=== PATIENT | female | born 1975 | race Two or more races ===

== ENCOUNTER 2017-11-10 20:31 | Emergency (ER) | payer MEDICARE, MEDICAID ==
[~2017-11-10] VITALS: Ht 153 cm; Wt 59.0 kg
[~2017-11-10 20:31] MED LIST: IBUPROFEN400 MG ORAL; IBUPROFEN600 MG ORAL; KEFLEX500 MG ORAL; NORCO 7.5-3251 EACH ORAL; PREDNISOLONE ACE5 ML OP; RESTASIS1 EACH RIGHT EYE; SAPHRIS5 MG SL; XANAX2 MG ORAL
[2017-11-10] MEDS ORDERED: Acetaminophen 500mg (ES) tab ORAL ONE (20:45)
[2017-11-10 20:54] VITALS: BP 123/73
[2017-11-10] MEDS ORDERED: TYLENOL EXTRA500 MG ORAL (21:46)
[2017-11-10] MEDS ORDERED: LIDOCAINE700 M1 TP (21:46)
[2017-11-10 21:50] VITALS: BP 125/73
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
--- NOTE | 2017-11-11 09:50 | Diagnostic Imaging Report ---
Indication: Right shoulder pain Technique: 3 views of the left shoulder Comparison: None Findings: No acute fractures or dislocations. Joint spaces are preserved. Impression: Negative
== END 2017-11-10 21:50 | disposition home or self-care (01) ==
LOC: EMR 21:28
DX: S46.911A Strain of unspecified muscle, fascia and tendon at shoulder and upper arm level, right arm, initial encounter (principal); W51.XXXA Accidental striking against or bumped into by another person, initial encounter; Y92.254 Theater (live) as the place of occurrence of the external cause; Z88.5 Allergy status to narcotic agent; Z86.69 Personal history of other diseases of the nervous system and sense organs
CPT/HCPCS: 99284

== ENCOUNTER 2017-12-01 00:11 | Emergency (ER) | payer MEDICARE, MEDICAID ==
[~2017-12-01] VITALS: Ht 152.4 cm; Wt 61.2 kg
[~2017-12-01 00:11] MED LIST changes: +LIDOCAINE700 M1 TP; +TYLENOL EXTRA500 MG ORAL
[2017-12-01 01:00] VITALS: BP 144/83
[2017-12-01] MEDS ORDERED: Acetaminophen 500mg (ES) tab ORAL ONE (01:15)
--- NOTE | 2017-12-01 03:13 | Emergency Room Report ---
History of Present Illness General Chief Complaint: Eye Problems Source: Patient Present Illness HPI 42-year-old female with a history of glaucoma, multiple surgeries, presents with concern for left eye pain She reports no change in vision She was seen by her doctor Servando Ludwig from ophthalmology Chest this morning, and reports she has another visit scheduled for tomorrow Apparently the pressure in the left eye was greater than usual She comes here only requesting a pressure check, as she'll he has medications prescribed by her doctor yesterday and has a follow-up later this morning with this meteorologist liaison She is currently taking difluprednate 0.05% and cyclosporine 0.05% drops. She reports these the drops that she was told to take just today. Allergies: Coded Allergies: HALOPERIDOL (Verified Allergy, Severe, 06/13/15) MORPHINE (Verified Allergy, Severe, 05/17/16) morphine mixed with xanax makes me delusional and black out. Patient History Past Medical History: see triage record Last Menstrual Period: 2 weeks ago Now: No Reviewed Nursing Documentation: PMH: Agreed; PSxH: Agreed Nursing Documentation-PMH Hx Cancer: No Hx Gastrointestinal Problems: Yes - cholesystectomy 05/2016 Hx Neurological Problems: Yes - HX MIGRAINES-LAST EPISODE 02/2015 Hx Seizures: Yes Review of Systems All Other Systems: negative except mentioned in HPI Physical Exam Vital Signs Date Time Temp Pulse Resp B/P (MAP) Pulse Ox O2 Delivery O2 Flow Rate FiO2 12/01/17 00:16 97.6 100 18 144/83 98 Room Air 97.5 Sp02 EP Interpretation: reviewed, normal General Appearance: no apparent distress, alert, non-toxic Head: normocephalic Eyes: left eye visual acuity - 20/100; bilateral eye normal inspection, bilateral eye PERRL, bilateral eye EOMI ENT: normal ENT inspection, hearing grossly normal, normal pharynx, no angioedema, normal voice, moist mucus membranes Neck: normal inspection, full range of motion, supple, supple/symm/no masses Respiratory: chest non-tender, lungs clear, normal breath sounds, chest symmetrical, palpation of chest normal Cardiovascular #1: normal peripheral pulses, regular rate, rhythm Cardiovascular #2: 2+ radial (R), 2+ radial (L) Gastrointestinal: normal inspection, non tender, soft, no mass, no guarding, no rebound Rectal: deferred Genitourinary: normal inspection, no CVA tenderness Musculoskeletal: back normal, gait/station normal, normal range of motion Neurologic: alert, responsive, cosmetics counter manager III-XII nml as tested, motor strength/tone normal, sensory intact, speech normal Psychiatric: judgement/insight normal, memory normal, mood/affect normal, no suicidal/homicidal ideation Skin: normal color, no rash, warm/dry, normal turgor Lymphatic: no adenopathy Medical Decision Making Diagnostic Impression: Primary Impression: Eye problem ER Course Patient with a good relationship with her meteorologist liaison, reports she just saw him, and he is aware, and also has follow-up tomorrow with her meteorologist liaison, I did call Dr. Servando Ludwig, on his cell phone number that the patient provided me [phone], he did not return the call. I asked patient to await for the call but she had a desire to go home, because she only came to get the pressure measure. But requested she follow up with her doctor tomorrow morning as she told me she had already had arranged, and that if she goes home and is unable to see him tomorrow morning at she should, to our ER again by noon. She seemed very reliable to do this, and said she just wanted to get her pressure checked, today the intraocular pressure measurement using our Kj-Pen was 33 in the left eye and 17 in the right eye. Although these values are elevated, the examination was not done optimally, as patient was moving her eyes a lot. Also patient does not have a steamy mid dilated pupil, no conjunctival injection, and is not having change in her baseline of her vision in her left eye which is the one she came out of concern for. Her medications do not seem accurate for those that would treat glaucoma, but again patient reports she has a follow-up with meteorologist liaison tomorrow morning does not wish to stay here awaiting ophthalmology consultation. She however, did agree to come back if she was unable see her meteorologist liaison tomorrow morning, so I did discharge her with this follow-up plan. Last Vital Signs Date Time Temp Pulse Resp B/P (MAP) Pulse Ox O2 Delivery O2 Flow Rate FiO2 12/01/17 01:14 97.6 12/01/17 01:00 100 18 144/83 98 Room Air Disposition: HOME, SELF-CARE Condition: Stable Referrals: NON PHYSICIAN (PCP) GIOVANNI HERNANDEZ M.D December 01, 2017 03:13
[2017-12-01 03:22] VITALS: BP 126/87
[2017-12-01 03:23] VITALS: BP 144/83
== END 2017-12-01 03:24 | disposition home or self-care (01) ==
LOC: EMR 01:05
DX: H57.12 Ocular pain, left eye (principal); H40.9 Unspecified glaucoma; Z98.890 Other specified postprocedural states; Z86.69 Personal history of other diseases of the nervous system and sense organs; Z90.49 Acquired absence of other specified parts of digestive tract; Z88.5 Allergy status to narcotic agent
CPT/HCPCS: 99283

== ENCOUNTER 2018-05-28 20:51 | Emergency (ER) | payer MEDICARE, MEDICAID ==
[~2018-05-28] VITALS: Ht 152.4 cm; Wt 61.2 kg
[2018-05-28 21:10] VITALS: BP 102/68
[2018-05-28] MEDS ORDERED: CEPHALEXIN500 MG ORAL (21:18)
[2018-05-28 21:27] VITALS: BP 102/68
--- NOTE | 2018-05-28 21:45 | Emergency Room Report ---
History of Present Illness General Chief Complaint: Upper Extremity Injury Source: Patient Present Illness HPI Patient 42-year-old female who presented after increased pain to her left index finger. The patient was having injured her finger 2 days ago. She reports having some foul-smelling drainage.She reported have some initial bleeding. She denies any fever. Allergies: Coded Allergies: HALOPERIDOL (Verified Allergy, Severe, 06/13/15) MORPHINE (Verified Allergy, Severe, 05/17/16) morphine mixed with xanax makes me delusional and black out. Patient History Past Medical History: see triage record Last Menstrual Period: 3 weeks ago Now: No Reviewed Nursing Documentation: PMH: Agreed; PSxH: Agreed Nursing Documentation-PMH Hx Cancer: No Hx Gastrointestinal Problems: Yes - cholesystectomy 05/2016 Hx Neurological Problems: Yes - HX MIGRAINES-LAST EPISODE 02/2015 Hx Seizures: Yes Review of Systems All Other Systems: negative except mentioned in HPI Physical Exam Vital Signs Date Time Temp Pulse Resp B/P (MAP) Pulse Ox O2 Delivery O2 Flow Rate FiO2 05/28/18 20:57 99.0 83 16 102/68 97 Room Air General Appearance: well appearing, no apparent distress, alert, GCS 15 Head: normocephalic, atraumatic ENT: hearing grossly normal, normal voice Neck: full range of motion, supple Respiratory: no respiratory distress, speaking full sentences Musculoskeletal: other - left index finger, slight paronychial redness, no abscess Neurologic: normal inspection, alert, oriented x3, responsive, normal gait Psychiatric: mood/affect normal Skin: no rash Medical Decision Making Diagnostic Impression: Primary Impression: Paronychia Additional Impression: Nail avulsion ER Course The patient presented for finger pain. The differential diagnosis included was not limited to fracture, paronychial, nail avulsion among others. Patient has a benign exam and does not appear to require any further imaging or laboratory testing at this time. The patient given prescription for Keflex for what appears to be a minimally infected paronychia. Patient was given prescription for Keflex. Patient is to follow up with primary care physician and to return if worse. Last Vital Signs Date Time Temp Pulse Resp B/P (MAP) Pulse Ox O2 Delivery O2 Flow Rate FiO2 05/28/18 20:57 99.0 83 16 102/68 97 Room Air Status: improved Disposition: HOME, SELF-CARE Condition: Stable Scripts Cephalexin* (KEFLEX*) 500 Mg Capsule 500 MG ORAL EVERY 6 HOURS, #28 CAP Prov: Alok Boudreaux MD 05/28/18 Patient Instructions: Alok Garzon MD May 28, 2018 21:45
== END 2018-05-28 21:35 | disposition home or self-care (01) ==
LOC: EMR 21:30
DX: L03.012 Cellulitis of left finger (principal); S61.301A Unspecified open wound of left index finger with damage to nail, initial encounter; X58.XXXA Exposure to other specified factors, initial encounter; Y92.9 Unspecified place or not applicable; Z90.49 Acquired absence of other specified parts of digestive tract; Z88.5 Allergy status to narcotic agent
CPT/HCPCS: 99282

== ENCOUNTER 2019-03-10 02:44 | Emergency (ER) | payer MEDICARE, MEDICAID ==
[~2019-03-10] VITALS: Ht 152.4 cm; Wt 2.3 kg
[~2019-03-10 02:44] MED LIST changes: +CEPHALEXIN500 MG ORAL
--- NOTE | 2019-03-10 02:55 | NUR ---
ED Nurse Note: Patient walked into ED c/o bug bite on her right foot, states that she got bit 2 days ago, patient presents with 2 raised bmups on her right foot, patient actually brought the spider that bit her in a ziploc bag, reports her pain of a 4/10 pain. no drainage noted, just redness. patient is alert and oriented x4, ambulatory with a steady gait, VSS
--- NOTE | 2019-03-10 02:59 | Emergency Room Report ---
History of Present Illness General Chief Complaint: Skin Rash/Abscess Source: Patient Present Illness HPI 43-year-old female presents with spider bite to her right foot she endorses 2 bites, she states that she caught a spider she brought the spider in, she denies any fevers chills chest pain shortness of breath she endorses a little itchy pain mild severity no aggravating or alleviating factors patient presents for evaluation Allergies: Coded Allergies: HALOPERIDOL (Verified Allergy, Severe, 06/13/15) Patient History Past Medical History: see triage record Last Menstrual Period: 02/2019 Now: No Reviewed Nursing Documentation: PMH: Agreed; PSxH: Agreed Nursing Documentation-PMH Hx Cancer: No Hx Gastrointestinal Problems: Yes - cholesystectomy 05/2016 Hx Neurological Problems: Yes - HX MIGRAINES-LAST EPISODE 02/2015 Hx Seizures: Yes Review of Systems All Other Systems: negative except mentioned in HPI Physical Exam Vital Signs Date Time Temp Pulse Resp B/P (MAP) Pulse Ox O2 Delivery O2 Flow Rate FiO2 03/10/19 02:47 98.4 95 16 107/72 (84) 97 Room Air Sp02 EP Interpretation: reviewed, normal General Appearance: well appearing, no apparent distress, alert Head: normocephalic, atraumatic Eyes: bilateral eye PERRL, bilateral eye EOMI ENT: uvula midline, moist mucus membranes Neck: supple, thyroid normal, supple/symm/no masses Respiratory: no respiratory distress Musculoskeletal: normal inspection Neurologic: alert, oriented x3 Psychiatric: mood/affect normal Skin: warm/dry, other - 2 punctate lesions on the right foot no erythema or discharge no fluctuance Medical Decision Making Diagnostic Impression: Primary Impression: Rash and other nonspecific skin eruption Additional Impression: Insect bite Qualified Codes: S90.861A - Insect bite (nonvenomous), right foot, initial encounter; W57.XXXA - Bitten or stung by nonvenomous insect and other nonvenomous arthropods, initial encounter ER Course 43-year-old female has a spider in a plastic bag, 2 punctate wounds on the right foot however no evidence of superinfection, will provide patient with hydrocortisone and Benadryl cream disposition home with return precautions Last Vital Signs Date Time Temp Pulse Resp B/P (MAP) Pulse Ox O2 Delivery O2 Flow Rate FiO2 03/10/19 02:47 98.4 95 16 107/72 (84) 97 Room Air Disposition: HOME, SELF-CARE Condition: Stable [facility]: [facility] Patient Instructions: Insect Bite, Rash Additional Instructions: The patient was provided with discharge instructions, notified to follow-up with a primary care doctor and or specialist in the next 24-48 hours, and to return to the ED if they have worsening of their symptoms. Please note that this report is being documented using [employer] technology. This can lead to erroneous entry secondary to incorrect interpretation by the dictating instrument. Juan Ram MD Mar 10, 2019 02:59
[2019-03-10] MEDS ORDERED: Hydrocortisone 1% Cr 30gm TOPIC ONE (03:00)
[2019-03-10] MEDS ORDERED: Hydrocortisone 1% Cr 15gm TOPIC ONE (03:00)
[2019-03-10] MEDS ORDERED: DiphenhydrAMINE & Zinc 28g Cream TOPIC ONE (03:00)
[2019-03-10 03:09] VITALS: BP 107/72
[2019-03-10] MEDS ORDERED: ANTI-ITCH28 G1 TP (03:20)
[2019-03-10 03:25] VITALS: BP 120/70
[2019-03-10] MEDS ORDERED: Neosporin Oint Ud Pkt TOPIC ONE (03:30)
--- NOTE | 2019-03-10 03:30 | NUR ---
ER DISCHARGE NOTE: Patient is cleared to be discharged per ERMD, pt is aox4, on room air, with stable vital signs. pt was given dc and prescription instructions, pt was able to verbalize understanding, pt id band removed without complications. pt is able to ambulate with steady gait. pt took all belongings.
== END 2019-03-10 03:30 | disposition home or self-care (01) ==
LOC: EMR 02:55
DX: T63.301A Toxic effect of unspecified spider venom, accidental (unintentional), initial encounter (principal); R21 Rash and other nonspecific skin eruption; Z90.49 Acquired absence of other specified parts of digestive tract; Z88.8 Allergy status to other drugs, medicaments and biological substances; Y92.9 Unspecified place or not applicable; W57.XXXA Bitten or stung by nonvenomous insect and other nonvenomous arthropods, initial encounter
CPT/HCPCS: 99282

== ENCOUNTER 2019-11-22 14:08 | Emergency (ER) | payer MEDICARE, MEDICAID ==
[~2019-11-22] VITALS: Ht 152.4 cm; Wt 65.8 kg
[~2019-11-22 14:08] MED LIST changes: +ANTI-ITCH28 G1 TP
[2019-11-22] MEDS ORDERED: Omnipaque-300 100ml vial INJ PRN (14:30)
[2019-11-22] MEDS ORDERED: Ketorolac 30mg Inj IV ONE (14:30)
[2019-11-22 14:35] VITALS: BP 100/55
[2019-11-22 15:11] LABS: BILIRUBIN, URINE NEGATIVE (NEGATIVE); COLOR,URINE PALE YELLOW; GLUCOSE, URINE (UA) NEGATIVE (NEGATIVE); KETONES,URINE NEGATIVE (NEGATIVE); LEUKOCYTE ESTERASE ,URINE NEGATIVE (NEGATIVE); NITRITE,URINE NEGATIVE (NEGATIVE); PH,URINE 7 (4.5-8.0); PROTEIN,URINE NEGATIVE (NEGATIVE); UROBILINOGEN,URINE NORMAL MG/DL (0.0-1.0)
[2019-11-22 15:20] LABS: APPEARANCE,URINE CLEAR
[2019-11-22 15:25] LABS: BASOPHILS % (AUTO) 0.8 % (0.0-2.0); EOSINOPHILS % (AUTO) 0.9 % (0.0-3.0); HEMOGLOBIN 13.3 G/DL (12.0-16.0); LYMPHOCYTES % (AUTO) 14.2 % (20.0-45.0); MEAN CORPUSCULAR VOLUME 91 FL (80-99); MONOCYTES % (AUTO) 4.8 % (1.0-10.0); NEUTROPHILS % (AUTO) 79.3 % (45.0-75.0); PLATELET COUNT 315 K/UL (150-450); RED BLOOD COUNT 4.49 M/UL (4.20-5.40); RED CELL DISTRIBUTION WIDTH 13.7 % (11.6-14.8); WHITE BLOOD COUNT 13.2 K/UL (4.8-10.8)
[2019-11-22 15:31] LABS: INR 0.9 (0.9-1.1)
[2019-11-22 15:42] LABS: ANION GAP 10 mmol/L (5-15); BLOOD UREA NITROGEN 15 mg/dL (7-18); CARBON DIOXIDE 24 MMOL/L (21-32); CHLORIDE 104 MMOL/L (98-107); CREATININE 0.6 MG/DL (0.55-1.30); POTASSIUM 3.9 MMOL/L (3.5-5.1); SODIUM 138 MMOL/L (136-145)
[2019-11-22 15:54] LABS: ALANINE AMINOTRANSFERASE 16 U/L (12-78); ALBUMIN 3.8 G/DL (3.4-5.0); ALBUMIN/GLOBULIN RATIO 1.1 (1.0-2.7); ALKALINE PHOSPHATASE 69 U/L (46-116); ASPARTATE AMINO TRANSFERASE 13 U/L (15-37); BILIRUBIN,TOTAL 0.4 MG/DL (0.2-1.0)
--- NOTE | 2019-11-22 16:54 | Diagnostic Imaging Report ---
Clinical Indication: Right lower quadrant abdominal pain Technique: No oral contrast utilized, per emergency room physician request IV administration nonionic contrast. Venous phase spiral acquisition obtained through the abdomen and pelvis. Multiplanar reconstructions were generated. Total dose length product 292 mGycm. CTDIvol(s) 5.9 mGy. Dose reduction achieved using automated exposure control Comparison: 05/11/2016 Findings: Lack of enteric contrast limits assessment of the GI tract. Normal appendix. No evidence of colonic diverticulosis or diverticulitis. No small bowel distention. No free or loculated intraperitoneal gas or fluid is evident. The distal esophagus, stomach, duodenum are unremarkable. Interim cholecystectomy. No biliary ductal dilatation. The liver, pancreas, spleen, adrenals, left kidney are unremarkable. The right kidney demonstrates a subcentimeter low-attenuation lesion which is too small to characterize. Again demonstrated is evidence of prior bilateral fallopian tubal ligation. A small collapsed follicle is seen in the left ovary. The right ovary is unremarkable. The uterus is otherwise unremarkable. No pelvic mass or adenopathy. The bones are unremarkable. The included lung bases are clear. Impression: Limited assessment of the GI tract, due to lack of enteric contrast administration. No definite acute abnormality. Interim cholecystectomy Other findings as noted, including evidence of prior bilateral fallopian tubal ligation, small left ovarian collapsed follicle The CT scanner at [facility] is accredited by the [employer] and the scans are performed using protocols designed to limit radiation exposure to as low as reasonably achievable to attain images of sufficient resolution adequate for diagnostic evaluation.
--- NOTE | 2019-11-22 17:36 | Emergency Room Report ---
History of Present Illness General Chief Complaint: Abdominal Pain Source: Patient Present Illness HPI 44-year-old female with history of bipolar disorder currently taking medication , here complaining of 2 days of right lower quadrant abdominal pain and few bouts of nonbloody diarrhea. Denies any generalized abdominal pain, nausea vomiting, fever and chills. Denies any cough or congestion, shortness of breath. Reports that she smokes marijuana. Also smokes tobacco and drinks alcohol on daily basis. Has not taken medication for symptom relief. Denies . Denies urinary symptoms. Denies rash. Is afebrile and oxygenation within normal limits. Has history of cholecystectomy. Allergies: Coded Allergies: HALOPERIDOL (Verified Allergy, Severe, 06/13/15) COVID-19 Screening Contact w/high risk pt: No Recent Travel to affected area: No Experienced COVID-19 symptoms?: No Patient History Past Medical History: see triage record Past Surgical History: none Pertinent Family History: none Last Menstrual Period: 3 weeks Now: No Immunizations: UTD Reviewed Nursing Documentation: PMH: Agreed; PSxH: Agreed Nursing Documentation-PMH Past Medical History: No History, Except For Hx Cancer: No - tonsillectomy Hx Gastrointestinal Problems: Yes - cholesystectomy 05/2016 Hx Neurological Problems: Yes - HX MIGRAINES-LAST EPISODE 02/2015 Hx Seizures: Yes Review of Systems All Other Systems: negative except mentioned in HPI Physical Exam Vital Signs Date Time Temp Pulse Resp B/P (MAP) Pulse Ox O2 Delivery O2 Flow Rate FiO2 11/22/19 14:29 98.2 80 18 115/80 (92) 99 11/22/19 14:35 Room Air Sp02 EP Interpretation: reviewed, normal General Appearance: no apparent distress, alert, GCS 15, non-toxic Head: normocephalic, atraumatic Eyes: bilateral eye normal inspection, bilateral eye PERRL ENT: hearing grossly normal, normal pharynx, no angioedema, normal voice Neck: full range of motion, supple/symm/no masses Respiratory: normal inspection, no rhonchi, no respiratory distress, no retraction, no wheezing Cardiovascular #1: regular rate, rhythm, no edema, no murmur Gastrointestinal: normal bowel sounds, non tender, soft, no mass, no organomegaly, no peritonitis, no bruit, non-distended, no guarding, no rebound Rectal: deferred Genitourinary: no CVA tenderness Musculoskeletal: back normal Neurologic: alert, motor strength/tone normal, oriented x3, sensory intact, responsive, speech normal Psychiatric: judgement/insight normal, memory normal, mood/affect normal, no suicidal/homicidal ideation Skin: no rash Lymphatic: no adenopathy Medical Decision Making PA Attestation Diagnosis and treatment plans were reviewed and discussed with my supervising physician Dr. Ram Diagnostic Impression: Primary Impression: Abdominal pain Additional Impressions: Amphetamine abuse Suspected 2019 novel coronavirus infection ER Course 44-year-old female with history of bipolar disorder currently taking medication , here complaining of 2 days of right lower quadrant abdominal pain and few bouts of nonbloody diarrhea. Denies any generalized abdominal pain, nausea vomiting, fever and chills. Denies any cough or congestion, shortness of breath. Reports that she smokes marijuana. Also smokes tobacco and drinks alcohol on daily basis. Has not taken medication for symptom relief. Denies . Denies urinary symptoms. Denies rash. Is afebrile and oxygenation within normal limits. Has history of cholecystectomy. Ddx considered but are not limited to: appendicitis, cholecystitis, gastritis, gastroenteritis, UTI, pyelonephritis, SBO, diverticulitis, influenza with GI manifestation, [place], complication with Vital signs: are WNL, pt. is afebrile H&PE are most consistent with: Abdominal pain, suspected COVID-19 infection, amphetamine abuse ORDERS: abdominal CT, abdominal pain set, tox screen, dicyclomine, Tylenol ED INTERVENTIONS: NS bolus, Pepcid, Zofran, Toradol DISCHARGE: At this time pt. is stable for d/c to home. Will provide printed patient care instructions, and any necessary prescriptions. Care plan and follow up instructions have been discussed with the patient prior to discharge. Patient to follow primary doctor, take medication as directed, if worsening symptoms return to emergency room. Also advised patient to go across the street and get tested for coronavirus as has old lymphocyte count. CT/MRI/US Diagnostic Results CT/MRI/US Diagnostic Results : Imaging Test Ordered: CT abdomen pelvis with contrast Impression Within normal limits, no appendicitis noted Last Vital Signs Date Time Temp Pulse Resp B/P (MAP) Pulse Ox O2 Delivery O2 Flow Rate FiO2 11/22/19 14:35 80 18 Room Air 11/22/19 14:35 98.2 100/55 100 Disposition: HOME, SELF-CARE Condition: Stable Scripts Acetaminophen* (TYLENOL EXTRA STRENGTH*) 500 Mg Tablet 500 MG ORAL Q8H PRN for Prn Headache/Temp > 101, #30 TAB 0 Refills Prov: Ariela Richmond 11/22/19 Dicyclomine Hcl* (DICYCLOMINE HCL*) 10 Mg Capsule 10 MG ORAL QID, #20 CAP Prov: Ariela Richmond 11/22/19 Referrals: NOT CHOSEN IPA/MD,REFERRING (PCP) Patient Instructions: Abdominal Pain, Adult, Stimulant Use Disorder- Methamphetamines Additional Instructions: Take medication as directed, follow-up with your primary doctor, you need to stay home for self quarantine due to Covid 19 precautions for 14 days. Take medication as directed, follow with primary doctor, if worsening symptoms return to the emergency room Ariela Richmond November 22, 2019 17:36
[2019-11-22] MEDS ORDERED: DICYCLOMINE HCL10 MG ORAL (17:37)
[2019-11-22] MEDS ORDERED: TYLENOL EXTRA500 MG ORAL (17:37)
[2019-11-22 17:57] VITALS: BP 105/65
== END 2019-11-22 17:58 | disposition home or self-care (01) ==
LOC: EMR 15:02
DX: R10.31 Right lower quadrant pain (principal); G40.909 Epilepsy, unspecified, not intractable, without status epilepticus; F15.10 Other stimulant abuse, uncomplicated; F12.90 Cannabis use, unspecified, uncomplicated; F17.200 Nicotine dependence, unspecified, uncomplicated; F10.20 Alcohol dependence, uncomplicated; F31.9 Bipolar disorder, unspecified; Z88.8 Allergy status to other drugs, medicaments and biological substances; Z90.49 Acquired absence of other specified parts of digestive tract
CPT/HCPCS: 36415; 74177; 80053; 80307; 81003; 81025; 83605; 83690; 84484; 85025; 85610; 85730; 96361; 96374; 96375; 99284; G0480; J1885; J2405; J7030; Q9967; S0028